=== PATIENT | female | born 1955 | race Caucasian/White ===

== ENCOUNTER 2016-08-19 20:11 | Emergency (ER) | payer BC, OTHER ==
[~2016-08-19] VITALS: Ht 167.6 cm; Wt 59.0 kg
[~2016-08-19 20:11] MED LIST: HYDR-971 PO
[2016-08-19 20:47] VITALS: BP 191/88
[2016-08-19] MEDS ORDERED: OXYC-323 PO (20:58)
[2016-08-19] MEDS ORDERED: AMOX500C PO (20:58)
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
== END 2016-08-19 21:08 | disposition home or self-care (01) ==
LOC: ER 20:11
DX: K04.7 Periapical abscess without sinus (principal); Z90.710 Acquired absence of both cervix and uterus; Z88.5 Allergy status to narcotic agent
CPT/HCPCS: 99283